=== PATIENT | female | born 1950 | race Caucasian/White ===

== ENCOUNTER 2020-04-20 08:37 | Outpatient (CLI) | payer MEDICARE, SELFPAY ==
--- NOTE | ~2020-04-20 | MR_ITS ---
EXAMINATION: MR brain/brain stem wo/w con EXAM DATE: 04/20/2020 10:01 INDICATION: Balance impairment. Amnesia. Dizziness. Alteration of awareness. Rule out mass, NPH. TECHNIQUE: Magnetic resonance imaging (MRI) of the brain/brain stem obtained without contrast. Sagit charmaine T1, axial diffusion, gradient echo (T2*), T1, T2, FLAIR sequences obtained. Patient was then inj ected with 15 cc intravenous Multihance contrast. Axial and coronal postcontrast T1 weighted sequence s obtained. There is no prior study for comparison. FINDINGS: There are no areas of restricted diffusion to suggest acute infarction. There is no acute hemorrhage seen on the T2*, a hemosiderin sensitive sequence. No intraparenchymal brain mass lesion. There is mild to moderate periventricular and subcortical T2/FLAIR signal hyperintensity, nonspecifi c but probably related to small vessel ischemic disease (microangiopathy). There is mild prominence of the sulci and ventricles related to cerebral atrophy. There are no extra-axial collections. Fl ow voids are seen in the cerebral arteries on the T2-weighted sequences consistent with their expecte d patency. The orbits are unremarkable. Soft tissue is unremarkable. IMPRESSION: 1. No acute intracranial findings. 2. Chronic age related findings. Reviewed, dictated and finalized at location B.
[2020-04-20 09:30] LABS: Estimated Glomerular Filt Rate 49
== END 2020-04-20 08:38 | disposition home or self-care (01) ==
PROVIDERS: PCP Internal Medicine; Visit Provider Internal Medicine
DX: R26.89 Other abnormalities of gait and mobility (principal); R41.3 Other amnesia
CPT/HCPCS: 36415; 70553; A9577

== ENCOUNTER 2020-06-03 07:53 | Outpatient (CLI) | payer MEDICARE, SELFPAY ==
--- NOTE | ~2020-06-03 | US_ITS ---
US right upper quadrant DATE: 06/03/2020 09:15 INDICATION: Elevated liver enzyme levels TECHNIQUE: Real-time imaging of liver, pancreas, gallbladder fossa; Doppler analysis COMPARISON: 09/30/2013 MRI MRCP 01/13/2012 limited abdominal ultrasound FINDINGS: There is hepatic steatosis. No hepatic space-occupying mass lesion is evident. Normal hepat opedal portal venous flow direction. The common bile duct measures 8 mm in this postcholecystectomy patient. The pancreas is obscured by bowel gas. IMPRESSION: Common bile duct measures up to 8 mm, likely secondary to cholecystectomy Hepatic steatosis Reviewed, dictated and finalized at Location A. Reviewed, dictated and finalized at location B. IMPRESSION: Common bile duct measures up to 8 mm, likely secondary to cholecyst ectomy Hepatic steatosis
== END 2020-06-03 07:54 | disposition home or self-care (01) ==
PROVIDERS: PCP Internal Medicine; Visit Provider Clinical Nurse Specialist
DX: R74.8 Abnormal levels of other serum enzymes (principal); K76.0 Fatty (change of) liver, not elsewhere classified
CPT/HCPCS: 76705

== ENCOUNTER 2020-08-10 10:58 | Outpatient (CLI) | payer MEDICARE, SELFPAY ==
--- NOTE | ~2020-08-10 | US_ITS ---
EXAMINATION: US abdomen complete DATE: 08/10/2020 12:03 INDICATION: Compound heterogeneous hemochromatosis TECHNIQUE: Multiple grayscale and Doppler ultrasound images of the abdomen were obtained. COMPARISON: 06/03/2020 FINDINGS: Bowel gas obscures visualization of the pancreas. The visualized portions of the pancreas a re unremarkable. The liver is normal with normal echogenicity and echotexture. No surface nodularity. Normal hepatopetal flow in the main portal vein. The common bile duct measures 7 mm, a normal post c holecystectomy finding. The visualized portions of the aorta and inferior vena cava are normal. The right kidney measures 11.4 x 4.0 x 4.5 cm. The left kidney measures 10.9 x 4.7 x 4.0 cm. The kidn eys demonstrate normal parenchymal echogenicity. There is no hydronephrosis. The spleen is normal in appearance and measures 10.2 cm. IMPRESSION: 1. Unremarkable ultrasound abdomen complete Reviewed, dictated and finalized at location A.
== END 2020-08-10 10:59 | disposition home or self-care (01) ==
PROVIDERS: PCP Internal Medicine
DX: R74.8 Abnormal levels of other serum enzymes (principal)
CPT/HCPCS: 76700

== ENCOUNTER 2020-10-17 09:31 | Outpatient (CLI) | payer MEDICARE, SELFPAY ==
--- NOTE | ~2020-10-17 | MM_ITS ---
EXAMINATION: MM screening [facility] BI w anthony HISTORY: Screening mammogram TECHNIQUE: Craniocaudal and mediolateral oblique 3-D tomosynthesis images were obtained and synthetic 2-D images were generated. CAD analysis was submitted and interpreted. COMPARISON: 02/21/2018, 09/12/2016, 09/10/2015 bilateral digital screening mammogram examinations BREAST PARENCHYMAL COMPOSITION: There are scattered areas of fibroglandular density. FINDINGS: There are scattered bilateral benign calcifications. Stable subcentimeter circumscribed lob ular opacity in the anterior aspect of the upper outer quadrant of the left breast. Stable small circ umscribed benign-appearing intramammary lymph nodes on the right. Bilateral benign calcifications. There is a 2.7 x 6 mm circumscribed opacity in the lower inner left breast (craniocaudal Tomosynthesi s image 6/48). Diagnostic left mammogram and targeted left breast ultrasound examination are recommen ded. Otherwise there is no evidence of suspicious mass, calcification, or architectural distortion to sugg est malignancy in either breast. There has been no other suspicious interval change. IMPRESSION: 1. 2.7 x 6 mm opacity, lower inner quadrant of left breast 2. Recommend diagnostic left mammogram and targeted lower inner quadrant left breast ultrasound BI-RADS Category 0: Incomplete: Needs additional imaging evaluation. Reviewed, dictated and finalized at location A. EL PILE DRIVER OPERATOR IMPRESSION: 1. 2.7 x 6 mm opacity, lower inner quadrant of left breast 2. Recommend diagnostic left mammogram and targeted lower inner quadrant left b reast ultrasound BI-RADS Category 0: Incomplete: Needs additional imaging evaluation.
--- NOTE | ~2020-10-17 | DEXA_ITS ---
Bone Density Report Name: Marsha Carrion Age: 70 Sex: Female Ethnicity: White Date of : 1950 Indication: postmenopausal; height loss; Referring Provider: KARLA, WYATT Study: Bone densitometry was performed. Exam Date: October 17, 2020 Accession number: [id number] Bone Density: Region BMD T-score Z-score Classification AP Spine (L1-L4) 1.055 0.1 2.1 Normal Femoral Neck (Left) 0.748 -0.9 0.8 Normal Total Hip (Left) 0.869 -0.6 0.9 Normal Total Hip Bilateral Avg 0.853 -0.8 0.8 Normal Femoral Neck (Right) 0.728 -1.1 0.7 Osteopenia Total Hip (Right) 0.835 -0.9 0.6 Normal World Health Organization criteria for BMD impression classify patients as: Normal (T-score at or above -1.0), Osteopenia (T-score between -1.0 and -2.5), or Osteoporosis (T-score at or below -2.5). 10-year Fracture Risk(1): Major Osteoporotic Fracture 8.8% Hip Fracture 0.9% Reported Risk Factors: [place] (), Neck BMD=0.728, BMI=28.3 (1) FRAX(R) Version 3.08. Fracture probability calculated for an untreated patient. Fracture probability may be lower if the patient has received treatment. Previous Exams: Region Exam Age BMD T-score BMD Change BMD Change Date g/cm2 vs Baseline vs Previous AP Spine(L1-L4) 10/17/2020 70 1.055 0.1 -0.027(-2.5%)# -0.001(-0.1%) 09/10/2015 65 1.057 0.1 -0.026(-2.4%)# 0.033(3.2%)# 06/26/2012 61 1.024 -0.2 -0.059(-5.4%)# -0.059(-5.4%)# 12/08/2008 58 1.083 0.3 Total Hip(Left) 10/17/2020 70 0.869 -0.6 -0.013(-1.5%)# -0.029(-3.3%)* 09/10/2015 65 0.899 -0.4 0.016(1.8%)# 0.032(3.7%)# 06/26/2012 61 0.867 -0.6 -0.016(-1.8%)# -0.016(-1.8%)# 12/08/2008 58 0.882 -0.5 Total Hip(Right) 10/17/2020 70 0.835 -0.9 -0.042(-4.8%)# -0.048(-5.4%)* 09/10/2015 65 0.883 -0.5 0.005(0.6%)# 0.004(0.4%)# 06/26/2012 61 0.879 -0.5 0.002(0.2%)# 0.002(0.2%)# 12/08/2008 58 0.878 -0.5 *Denotes significance at 95% confidence level, LSC for AP Spine = 0.022 g/cm2, LSC for Total Hip = 0.027 g/cm2 Clinical Information Provided by Patient: Has used the following medications: Vitamin D Patient maximum height was 66.5 Menopause Age: 53 No regular weight bearing exercise Drinks caffeinated beverages Onset of menses at age 15 Number of children 4 Impression: The patient has low bone mass, based on the Right Femoral Neck T-score. The patient has an estimated ten-year
== END 2020-10-17 09:32 | disposition home or self-care (01) ==
LOC: ANHIMG 09:34
PROVIDERS: PCP Internal Medicine; Visit Provider Nurse Practitioner
DX: Z12.31 Encounter for screening mammogram for malignant neoplasm of breast (principal); Z78.0 Asymptomatic menopausal state; R92.8 Other abnormal and inconclusive findings on diagnostic imaging of breast; M85.851 Other specified disorders of bone density and structure, right thigh
CPT/HCPCS: 77063; 77067; 77080

== ENCOUNTER 2020-11-26 13:38 | Outpatient (CLI) | payer MEDICARE, SELFPAY ==
--- NOTE | ~2020-11-26 | MMUS_ITS ---
EXAMINATION: MM diagnostic mammo unilat LT, US breast LT limited HISTORY: Follow-up left breast mass TECHNIQUE: Additional 3-D tomosynthesis images of the left breast were performed and synthetic 2-D im ages were generated. CAD analysis was submitted and interpreted. High resolution Limited left breast ultrasound was performed. COMPARISON: Comparison to multiple prior studies sequentially, with oldest reviewed study dated 04/2013. BREAST PARENCHYMAL COMPOSITION: Breast composed of scattered areas of fibroglandular density. FINDINGS: MAMMOGRAPHIC FINDINGS: There is a focal mass measuring 5.5 mm in the lower inner quadrant of the left breast. There is no ar chitectural distortion or suspicious cluster of calcifications. ULTRASOUND: Limited left breast ultrasound: At 9:00, 3 cm from the nipple, there is an irregular shaped hypoechoi c mass measuring 4 x 4 x 4 mm, likely a complicated cyst. No other masses are identified. IMPRESSION: 1. Probable benign complicated cyst left breast at 9:00, 3 cm from the nipple. 2. Recommend 6 month follow-up diagnostic left mammogram and ultrasound BI-RADS category 3, probably benign findings. Reviewed, dictated and finalized at location A. ROASTER IMPRESSION: 1. Probable benign complicated cyst left breast at 9:00, 3 cm from the nipple. 2. Recommend 6 month follow-up diagnostic left mammogram and ultrasound BI-RADS category 3, probably benign findings.
== END 2020-11-26 13:39 | disposition home or self-care (01) ==
PROVIDERS: Family Provider Internal Medicine; PCP Internal Medicine; Visit Provider Obstetrics & Gynecology Gynecology
DX: N63.24 Unspecified lump in the left breast, lower inner quadrant (principal)
CPT/HCPCS: 76642; 77065

== ENCOUNTER 2021-10-26 13:00 | Outpatient (CLI) | payer MEDICARE, SELFPAY ==
--- NOTE | ~2021-10-26 | MMUS_ITS ---
EXAMINATION: MM diagnostic hina LT w anthony, US breast LT limited HISTORY: Follow-up left breast mass TECHNIQUE: Additional 3-D tomosynthesis images of the left breast were performed and synthetic 2-D im ages were generated. CAD analysis was submitted and interpreted. High resolution Limited left breast ultrasound was performed. COMPARISON: Comparison to multiple prior studies sequentially, with oldest reviewed study dated 08/30. BREAST PARENCHYMAL COMPOSITION: Breast composed of scattered areas of fibroglandular density. FINDINGS: MAMMOGRAPHIC FINDINGS: The left breast is stable. No new masses, calcifications or architectural distortion in the left [address] to suggest malignancy. There are benign intramammary lymph nodes. ULTRASOUND: Limited left breast ultrasound: At 9:00, 3 cm from the nipple, there is an oval hypoechoic mass with echogenic hilum measuring 5 x 3 x 3 mm without significant change in size compared with prior examina tion, compatible with benign intramammary lymph node. No suspicious masses to suggest malignancy. IMPRESSION: 1. No evidence for malignancy in the left breast. Benign findings. 2. Routine yearly screening mammogram and regular clinical breast examination are recommended. BI-RADS Category 2: Benign finding(s). Reviewed, dictated and finalized at location A. HING MACHINE OPERATOR IMPRESSION: 1. No evidence for malignancy in the left breast. Benign findings. 2. Routine yearly screening mammogram and regular clinical breast examination a re recommended. BI-RADS Category 2: Benign finding(s).
== END 2021-10-26 13:01 | disposition home or self-care (01) ==
PROVIDERS: PCP Internal Medicine; Visit Provider Obstetrics & Gynecology Gynecology
DX: R92.8 Other abnormal and inconclusive findings on diagnostic imaging of breast (principal)
CPT/HCPCS: 76642; 77061; 77065; G0279

== ENCOUNTER 2024-02-07 09:35 | Outpatient (CLI) | payer MEDICARE, SELFPAY ==
--- NOTE | ~2024-02-07 | MM_ITS ---
EXAMINATION: MM screening [facility] BI w anthony HISTORY: Screening mammogram TECHNIQUE: Craniocaudal and mediolateral oblique 3-D tomosynthesis images were obtained and synthetic 2-D images were generated. CAD analysis was submitted and interpreted. COMPARISON: 10/26/2021 diagnostic left mammogram and limited left breast ultrasound examination 11/26/2020 diagnostic left mammogram and limited left breast ultrasound 10/17/2020 bilateral screening mammogram BREAST PARENCHYMAL COMPOSITION: There are scattered areas of fibroglandular density. FINDINGS: There is no evidence of suspicious mass, calcification, or architectural distortion to sugg est malignancy in either breast. There has been no suspicious interval change. IMPRESSION: 1. No mammographic evidence of malignancy. 2. Recommend routine screening mammography in one year. BI-RADS Category 1: Negative Reviewed, dictated and finalized at location A.
== END 2024-02-07 09:36 | disposition home or self-care (01) ==
PROVIDERS: PCP Internal Medicine; Visit Provider Obstetrics & Gynecology Gynecology
DX: Z12.31 Encounter for screening mammogram for malignant neoplasm of breast (principal)
CPT/HCPCS: 77063; 77067